=== PATIENT | female | born 1970 | race Two or more races ===

== ENCOUNTER 2025-03-27 19:44 | Emergency (ER) | payer OTHER ==
[~2025-03-27] VITALS: Ht 152.4 cm; Wt 65.8 kg
[2025-03-27] MEDS: IV NS 0.9% 1,000 ML BAG IV ONE (20:09)
[2025-03-27 20:20] LABS: PLATELET COUNT (AUTO) 271 K/uL (150-450); RED BLOOD CELL COUNT(AUTO) 4.63 MIL/uL (4.0-5.2); RED CELL DISTRIBUTION WIDTH 13.7 % (11.5-15.0); WHITE BLOOD COUNT (AUTO) 5.8 K/uL (4.3-11.0)
[2025-03-27 20:39] LABS: CALCIUM, SERUM 8.3 mg/dL (8.5-10.1); CREATININE 0.7 mg/dL (0.6-1.3); SODIUM SERUM 146.0 mmol/L (136-145); UREA NITROGEN, BLOOD 15.0 mg/dL (7-18)
[2025-03-27 20:44] LABS: ALCOHOL, BLOOD 449.0 mg/dL (0-10); ASPARTATE AMINOTRANSFERASE 103.0 U/L (15-37); TOTAL PROTEIN, SERUM 7.2 g/dL (6.4-8.2)
[2025-03-27 21:16] LABS: AMPHETAMINE, URINE NEGATIVE (NEGATIVE); BARBITURATE, URINE NEGATIVE (NEGATIVE); BENZODIAZEPINE, URINE POSITIVE (NEGATIVE); CANNABINOID, URINE NEGATIVE (NEGATIVE); COCCAINE, URINE NEGATIVE (NEGATIVE); OPIATE, URINE NEGATIVE (NEGATIVE)
[2025-03-28 04:11] VITALS: BP 117/79; TEMP 98; O2SAT 96
== END 2025-03-28 04:12 | disposition home or self-care (01) ==
LOC: ER 19:52 → EDBD 19:52 → ER 03-28 04:12
DX: F10.129 Alcohol abuse with intoxication, unspecified (principal); R10.2 Pelvic and perineal pain; Z59.00 Homelessness unspecified; Y90.8 Blood alcohol level of 240 mg/100 ml or more
CPT/HCPCS: 99284; 96360; 70450; 85025; 80048; 80076; 36415; 84702; 80320; 80307; J7030; G0480

== ENCOUNTER 2025-04-02 00:26 | Emergency (ER) | payer OTHER ==
[~2025-04-02] VITALS: Ht 167.6 cm; Wt 60.8 kg
[2025-04-02] MEDS ORDERED: PHENOBARBITAL SODIUM 130 MG/ML VIAL ONE (02:42)
[2025-04-02] MEDS ORDERED: THIAMINE HCL 100 MG TABLET ONE (02:42)
[2025-04-02] MEDS ORDERED: FOLIC ACID 1 MG TABLET ONE (02:42)
[2025-04-02] MEDS: THIAMINE HCL 100 MG TABLET PO ONE (02:55)
[2025-04-02] MEDS: IV NS 0.9% 1,000 ML BAG IV ONE ×2 (02:55→03:38)
[2025-04-02] MEDS: FOLIC ACID 1 MG TABLET PO ONE (02:55)
[2025-04-02] MEDS: PHENOBARBITAL SODIUM 130 MG/ML VIAL IV ONE (02:55)
[2025-04-02 03:04] LABS: CALCIUM, SERUM 8.0 mg/dL (8.5-10.1); CREATININE 0.7 mg/dL (0.6-1.3); SODIUM SERUM 138 mmol/L (136-145); UREA NITROGEN, BLOOD 23 mg/dL (7-18)
[2025-04-02 03:05] LABS: PLATELET COUNT (AUTO) 179 K/uL (150-450); RED BLOOD CELL COUNT(AUTO) 4.54 MIL/uL (4.0-5.2); RED CELL DISTRIBUTION WIDTH 14.0 % (11.5-15.0); WHITE BLOOD COUNT (AUTO) 12.4 K/uL (4.3-11.0)
[2025-04-02 03:10] LABS: ASPARTATE AMINOTRANSFERASE 94 U/L (15-37); TOTAL PROTEIN, SERUM 6.8 g/dL (6.4-8.2)
[2025-04-02 03:31] LABS: LACTIC ACID 5.4 mmol/L (0.4-2.0)
[2025-04-02] MEDS ORDERED: PANT40TA2 PO (03:43)
[2025-04-02] MEDS ORDERED: ONDA4TAB5 PO (03:43)
[2025-04-02 06:39] LABS: LACTIC ACID REFLEX 4.5 mmol/L (0.4-1.9)
[2025-04-02 07:03] VITALS: BP 120/85; TEMP 98; O2SAT 95
== END 2025-04-02 07:04 | disposition home or self-care (01) ==
LOC: ER 00:27
DX: F10.139 Alcohol abuse with withdrawal, unspecified (principal); F10.129 Alcohol abuse with intoxication, unspecified; E87.20 Acidosis, unspecified; Z59.00 Homelessness unspecified; Z79.899 Other long term (current) drug therapy; Y90.6 Blood alcohol level of 120-199 mg/100 ml
CPT/HCPCS: 99284; 96374; 96361; 93005; 82248; 85025; 83605 ×2; 83690; 83735; 36415; 80053; 80320; 98960; J2560; J7030; G0480